=== PATIENT | male | born 1970 | race Caucasian/White ===

== ENCOUNTER 2017-10-31 20:02 | Emergency (ER) | payer BC ==
[2017-10-31 20:10] VITALS: BP 142/87; PULSE 67; RESP 18; TEMP 97.5
[2017-10-31] MEDS ORDERED: SODIUM CHLORIDE 0.9% 1,000 ML IV STA (20:29)
[2017-10-31] MEDS ORDERED: KETOROLAC 30 MG/ML 1 ML VIAL IVP STA (20:29)
[2017-10-31] MEDS ORDERED: ONDANSETRON 4 MG/2 ML VIAL IVP STA (20:35)
[2017-10-31] MEDS ORDERED: MORPHINE SULFATE 4MG/4ML SYRG IVP STA (20:35)
[2017-10-31 20:56] LABS: Basophils % (A) 0 %; Eosinophils # (A) 0.2 k/uL (0-0.7); Eosinophils % (A) 3 %; HCT 42.4 % (39.0-53.0); HGB 14.7 gm/dL (13.0-17.5); Lymphocytes # (A) 2.2 k/uL (1.0-4.8); Lymphocytes % (A) 33 %; MCH 31.9 pg (25.0-35.0); MCHC 34.6 g/dL (31.0-37.0); MCV 92.3 fL (80.0-100.0); Mean Platelet Volume 7.3; Monocytes # (A) 0.4 k/uL (0-1.0); Monocytes % (A) 5 %; Neutrophils # (A) 3.8 k/uL (1.3-7.7); Neutrophils % (A) 56 %; Platelet Count 193 k/uL (150-450); RBC 4.59 m/uL (4.30-5.90); WBC 6.7 k/uL (3.8-10.6)
--- NOTE | 2017-10-31 21:06 | XR ---
EXAMINATION TYPE: XR KUB DATE OF EXAM: 10/31/2017 9:00 PM CLINICAL HISTORY: Acute right-sided flank pain. TECHNIQUE: Two Upright KUB images of the abdomen are obtained. COMPARISON: None. FINDINGS: Scattered gas is seen in non-distended small bowel loops. Gas and fecal material is seen in non-distended colon. Amount of colonic fecal material is slightly prominent particularly in the righ t colon. There is 8mm rounded density over left lower sacrum favoring phlebolith. There is persistent 3 mm right pelvic phlebolith. Lung bases are clear. No pneumoperitoneum is identified. IMPRESSION: Overall nonobstructive bowel gas pattern. Mild to moderate proximal right colonic fecal stasis. No de finite nephrolithiasis.
[2017-10-31 21:07] LABS: ALT 60 U/L (21-72); AST 48 U/L (17-59); Albumin 4.5 g/dL (3.5-5.0); Alkaline Phosphatase 62 U/L (38-126); Amylase 81 U/L (30-110); Anion Gap 14 mmol/L; Blood Urea Nitrogen 21 mg/dL (9-20); Calcium 9.8 mg/dL (8.4-10.2); Carbon Dioxide 29 mmol/L (22-30); Chloride 103 mmol/L (98-107); Glucose 100 mg/dL (74-99); Lipase 221 U/L (23-300); Potassium 3.4 mmol/L (3.5-5.1); Sodium 146 mmol/L (137-145); Total Bilirubin 0.8 mg/dL (0.2-1.3); Total Protein 7.5 g/dL (6.3-8.2)
[2017-10-31 21:17] LABS: Appearance,Urine Cloudy (Clear); Bilirubin,Urine Negative (Negative); Blood,Urine Large (Negative); Color,Urine Red; Glucose,Urine (UA) Negative (Negative); Ketones,Urine Trace (Negative); Leukocyte Esterase,Urine Trace (Negative); Mucus,Urine Many /hpf; Nitrite,Urine Negative (Negative); Protein,Urine 1+ (Negative); RBC,Urine >182 /hpf (0-5); Specific Gravity,Urine 1.023 (1.001-1.035); Urobilinogen,Urine <2.0 mg/dL (<2.0)
[2017-10-31] MEDS ORDERED: TAMSULOSIN 0.4 MG CAP.ER.24H PO STA (21:31)
--- NOTE | 2017-10-31 21:33 | ED ---
Abdominal Pain HPI - General Chief Complaint: Abdominal Pain Stated Complaint: Flank pain Time Seen by Provider: 10/31/17 20:22 Source: patient, RN notes reviewed, old records reviewed Mode of arrival: ambulatory Limitations: no limitations - History of Present Illness Initial Comments: 47 year old male presents with sudden onset of right flank paina and hematuria. No history of kidney stones, his father had them. Patient feels nauseated, no vomiting. Patient was feeling well up to half hour prior to arrival in ED. No fevers, chills, or dysuria. MD Complaint: flank pain - Related Data Previous Rx's Medication Instructions Recorded HYDROcodone/APAP 5-325MG [[place] 1 tab PO Q6HR PRN #20 tab 10/31/17 5-325] Ketorolac [Toradol] 10 mg PO TID #20 tab 10/31/17 Ondansetron Odt [Zofran Odt] 4 mg PO Q8HR PRN #12 tab 10/31/17 Tamsulosin [Flomax] 0.4 mg PO DAILY #10 cap 10/31/17 Allergies Allergy/AdvReac Type Severity Reaction Status Date / Time bee venom protein (honey bee) AdvReac Swelling Verified 10/31/17 20:11 omeprazole [From Prilosec] AdvReac Rash/Hives Verified 10/31/17 20:11 Review of Systems ROS Statement: Those systems with pertinent positive or pertinent negative responses have been documented in the HPI. ROS Other: All systems not noted in ROS Statement are negative. Past Medical History Past Medical History: No Reported History History of Any Multi-Drug Resistant Organisms: None Reported Past Surgical History: Appendectomy, Tonsillectomy Past Psychological History: Anxiety Smoking Status: Never smoker Past Alcohol Use History: Occasional Past Drug Use History: None Reported General Exam - General Exam Comments Initial Comments: 47 year old male, appears in discomfort andpacing around room. Limitations: no limitations General appearance: alert, in no apparent distress Head exam: Present: atraumatic, normocephalic, normal inspection Eye exam: Present: normal appearance, PERRL, EOMI. Absent: scleral icterus, conjunctival injection, periorbital swelling Neck exam: Present: normal inspection. Absent: tenderness, meningismus, lymphadenopathy Respiratory exam: Present: normal lung sounds bilaterally. Absent: respiratory distress, wheezes, rales, rhonchi, stridor Cardiovascular Exam: Present: regular rate, normal rhythm, normal heart sounds. Absent: systolic murmur, diastolic murmur, rubs, gallop, clicks GI/Abdominal exam: Present: soft, tenderness (Right CVA), normal bowel sounds. Absent: distended, guarding, rebound, rigid Extremities exam: Present: normal inspection, full ROM, normal capillary refill. Absent: tenderness, pedal edema, joint swelling, calf tenderness Back exam: Present: normal inspection Neurological exam: Present: alert, oriented X3, CN II-XII intact Course Vital Signs 10/31/17 20:06 Temperature 97.5 F L Pulse Rate 67 Respiratory 18 Rate Blood Pressure 142/87 O2 Sat by Pulse 99 Oximetry Medical Decision Making - Medical Decision Making 47 year old male with hematuria, and right flank pain. Patient was given IV fluids, morphine, adn toradol. He reports improvement of symptoms rapidly. Patient has significant hematuria, no WBC. Patient KUB was reviewed adn shows phleboliths. Patient undwerwent CT, I am able to visualize a 4mm right ureteral stone. Patient will be discharged with flomax, toradol, norco, and zofran. Advised follow up with urology and PCP. REturn parameters discussed. - Lab Data Result diagrams: 10/31/17 20:40 10/31/17 20:40 Lab Results 10/31/17 10/31/17 10/31/17 Range/Units 20:40 20:40 20:40 WBC 6.7 (3.8-10.6) k/uL RBC 4.59 (4.30-5.90) m/uL Hgb 14.7 (13.0-17.5) gm/dL Hct 42.4 (39.0-53.0) % MCV 92.3 (80.0-100.0) fL MCH 31.9 (25.0-35.0) pg MCHC 34.6 (31.0-37.0) g/dL RDW 12.0 (11.5-15.5) % Plt Count 193 (150-450) k/uL Neutrophils % 56 % Lymphocytes % 33 % Monocytes % 5 % Eosinophils % 3 % Basophils % 0 % Neutrophils # 3.8 (1.3-7.7) k/uL Lymphocytes # 2.2 (1.0-4.8) k/uL Monocytes # 0.4 (0-1.0) k/uL Eosinophils # 0.2 (0-0.7) k/uL Basophils # 0.0 (0-0.2) k/uL Sodium 146 H (137-145) mmol/L Potassium 3.4 L (3.5-5.1) mmol/L Chloride 103 (98-107) mmol/L Carbon Dioxide 29 (22-30) mmol/L Anion Gap 14 mmol/L BUN 21 H (9-20) mg/dL Creatinine 1.00 (0.66-1.25) mg/dL Est GFR (CKD-EPI)AfAm >90 (>60 ml/min/1.73 sqM) Est GFR (CKD-EPI)NonAf 89 (>60 ml/min/1.73 sqM) Glucose 100 H (74-99) mg/dL Calcium 9.8 (8.4-10.2) mg/dL Total Bilirubin 0.8 (0.2-1.3) mg/dL AST 48 (17-59) U/L ALT 60 (21-72) U/L Alkaline Phosphatase 62 (38-126) U/L Total Protein 7.5 (6.3-8.2) g/dL Albumin 4.5 (3.5-5.0) g/dL Amylase 81 (30-110) U/L Lipase 221 (23-300) U/L Urine Color Red Urine Appearance Cloudy (Clear) Urine pH 6.0 (5.0-8.0) Ur Specific [place] 1.023 (1.001-1.035) Urine Protein 1+ H (Negative) Urine Glucose (UA) Negative (Negative) Urine Ketones Trace H (Negative) Urine Blood Large H (Negative) Urine Nitrite Negative (Negative) Urine Bilirubin Negative (Negative) Urine Urobilinogen <2.0 (<2.0) mg/dL Ur Leukocyte Esterase Trace H (Negative) Urine RBC >182 H (0-5) /hpf Urine Mucus Many H (None) /hpf - Radiology Data Radiology results: report reviewed overall non obstructive gas pattern. Mild to moderate right proximal stool collection. No nephrolithiasis. No renal stone or hydronephrosis seen bilaterally, no suspicious findings on non contrast study. Read by Dr. Saeed. I reivewed the CT and found a 4mm right ureteral stone. Disposition Clinical Impression: Right ureteral stone Disposition: HOME SELF-CARE Condition: Good Instructions: Ureteral Stones (ED) Additional Instructions: Patient was follow-up with urology and primary care provider. Take the medications as prescribed. Return to the emergency department if any alarming signs or symptoms occur. Prescriptions: HYDROcodone/APAP 5-325MG [[place] 5-325] 1 tab PO Q6HR PRN #20 tab PRN Reason: Pain Ketorolac [Toradol] 10 mg PO TID #20 tab Ondansetron Odt [Zofran Odt] 4 mg PO Q8HR PRN #12 tab PRN Reason: Nausea Tamsulosin [Flomax] 0.4 mg PO DAILY #10 cap Referrals: Micky Collins DO [Primary Care Provider] - 1-2 days Roc Tejada MD [STAFF PHYSICIAN] - 1-2 days Time of Disposition: 22:28
--- NOTE | 2017-10-31 21:58 | CT ---
EXAMINATION TYPE: CT abdomen pelvis wo con DATE OF EXAM: 10/31/2017 HISTORY: right flank pain CT DLP: 869.36 mGycm. Automated Exposure Control for Dose Reduction was Utilized. TECHNIQUE: CT scan of the abdomen and pelvis is performed without oral or IV contrast. COMPARISON: Same day abdominal x-ray. FINDINGS: Within the limitations of a non-contrast study, the following observations are made. LUNG BASES: There is bibasilar dependent atelectasis. LIVER/GB: No significant abnormality is appreciated. PANCREAS: No significant abnormality is seen. SPLEEN: No significant abnormality is seen. ADRENALS: No significant abnormality is seen. KIDNEYS: No renal stones or hydronephrosis is present bilaterally. No intraluminal calculus in the bl adder is seen. BOWEL: Debris-filled stomach is suggestive of recent meal ingestion. No suspicious small or large bow el dilatation is seen. Small bowel feces sign in ileal loops is consistent with delayed passage of in gested material to colonic level. GENITAL ORGANS: Central zone calcification correlates with round density on plain film. There are few tiny additional pelvic phleboliths. LYMPH NODES: No greater than 1cm abdominal or pelvic lymph nodes are appreciated. OSSEOUS STRUCTURES: No significant abnormality is seen. OTHER: No significant additional abnormality is seen. IMPRESSION: No renal stones or hydronephrosis is seen bilaterally. No suspicious acute finding identi fied on noncontrast study.
== END 2017-10-31 22:49 | disposition home or self-care (01) ==
LOC: EC 20:02
DX: N20.1 Calculus of ureter (principal); I87.8 Other specified disorders of veins; Z91.030 Bee allergy status; Z88.8 Allergy status to other drugs, medicaments and biological substances; Z90.49 Acquired absence of other specified parts of digestive tract
CPT/HCPCS: 36415; 80053; 82150; 83690; 85025; 81001; 74018; 74176; 99285; 96374; 96375 ×2; 96361 ×2; J2405; J1885; J2270

== ENCOUNTER 2018-02-22 15:14 | Emergency (ER) | payer BC ==
[2018-02-22 15:49] VITALS: BP 146/79; PULSE 63; RESP 18; TEMP 98.1
[2018-02-22 16:05] LABS: Appearance,Urine Clear (Clear); Bilirubin,Urine Negative (Negative); Blood,Urine Large (Negative); Color,Urine Light Yellow; Glucose,Urine (UA) Negative (Negative); Ketones,Urine Negative (Negative); Leukocyte Esterase,Urine Negative (Negative); Mucus,Urine Rare /hpf; Nitrite,Urine Negative (Negative); PH, Urine 6.5 (5.0-8.0); Protein,Urine Negative (Negative); RBC,Urine 64 /hpf (0-5); Urobilinogen,Urine <2.0 mg/dL (<2.0); WBC,Urine 5 /hpf (0-5)
[2018-02-22] MEDS ORDERED: SODIUM CHLORIDE 0.9% 1,000 ML IV STA (16:39)
[2018-02-22] MEDS ORDERED: MORPHINE SULFATE 4 MG/ML SYRINGE IV STA (16:39)
[2018-02-22] MEDS ORDERED: ONDANSETRON 4 MG/2 ML VIAL IVP STA (16:39)
[2018-02-22] MEDS ORDERED: KETOROLAC 30 MG/ML 1 ML VIAL IVP STA (16:39)
[2018-02-22 17:54] LABS: Basophils % (A) 0 %; Eosinophils # (A) 0.2 k/uL (0-0.7); Eosinophils % (A) 3 %; HCT 42.8 % (39.0-53.0); HGB 14.7 gm/dL (13.0-17.5); Lymphocytes # (A) 1.1 k/uL (1.0-4.8); Lymphocytes % (A) 18 %; MCH 32.1 pg (25.0-35.0); MCHC 34.4 g/dL (31.0-37.0); MCV 93.3 fL (80.0-100.0); Mean Platelet Volume 6.8; Monocytes # (A) 0.3 k/uL (0-1.0); Monocytes % (A) 5 %; Neutrophils # (A) 4.7 k/uL (1.3-7.7); Neutrophils % (A) 74 %; Platelet Count 181 k/uL (150-450); RBC 4.59 m/uL (4.30-5.90); RDW 11.7 % (11.5-15.5); WBC 6.3 k/uL (3.8-10.6)
[2018-02-22 18:05] LABS: ALT 37 U/L (21-72); AST 34 U/L (17-59); Albumin 4.3 g/dL (3.5-5.0); Alkaline Phosphatase 67 U/L (38-126); Anion Gap 7 mmol/L; Blood Urea Nitrogen 19 mg/dL (9-20); Calcium 9.2 mg/dL (8.4-10.2); Carbon Dioxide 30 mmol/L (22-30); Chloride 104 mmol/L (98-107); Glucose 93 mg/dL (74-99); Sodium 141 mmol/L (137-145); Total Bilirubin 0.5 mg/dL (0.2-1.3); Total Protein 6.9 g/dL (6.3-8.2)
--- NOTE | 2018-02-22 18:23 | XR ---
EXAMINATION TYPE: XR KUB, 2 views DATE OF EXAM: 02/22/2018 COMPARISON: 10/31/2017 HISTORY: Right flank pain with difficulty voiding TECHNIQUE: 2 upright views FINDINGS: No calcification over the right renal shadow or expected course of the right ureter, but ri ght carlos-pelvic phleboliths are identified. No calcification over the left renal shadow or expected c ourse of the left ureter, or urinary bladder. The urinary bladder is not enlarged. No pneumoperitoneum or pneumatosis. The bowel gas pattern is normal. No acute soft tissue or skeletal findings. The visualized lung bases and pleural spaces are negative. IMPRESSION: No acute process.
--- NOTE | 2018-02-22 19:33 | ED ---
Abdominal Pain HPI - General Chief Complaint: Abdominal Pain Stated Complaint: poss kidney stone Time Seen by Provider: 02/22/18 16:32 Source: patient Mode of arrival: ambulatory Limitations: no limitations - History of Present Illness Initial Comments: 77 years old male comes in with the right flank pain he has a history of kidney stones pain started about 1:30 PM today he feels like it's a lot of pressure in her muscle spasm in the area pain is quite localized to the right flank area doesn't radiate to the right flank he is status post appendectomy. He does have a history of kidney stone at today is having a difficulty voiding has a history of kidney stones his dad has a history of kidney stones. No fever no chills no nausea no vomiting - Related Data Home Medications Medication Instructions Recorded Confirmed Ibuprofen [Advil] 600 mg PO Q8HR PRN 02/22/18 02/22/18 Testosterone Micronized Powder 1 applic TOPICAL QAM 02/22/18 02/22/18 Allergies Allergy/AdvReac Type Severity Reaction Status Date / Time omeprazole [From Prilosec] Allergy Rash/Hives Verified 02/22/18 16:49 bee venom protein (honey bee) AdvReac Swelling Verified 02/22/18 16:49 Review of Systems ROS Statement: Those systems with pertinent positive or pertinent negative responses have been documented in the HPI. ROS Other: All systems not noted in ROS Statement are negative. Past Medical History Past Medical History: No Reported History History of Any Multi-Drug Resistant Organisms: None Reported Past Surgical History: Appendectomy, Tonsillectomy Past Psychological History: Anxiety Smoking Status: Never smoker Past Alcohol Use History: Occasional Past Drug Use History: None Reported General Exam - General Exam Comments Initial Comments: General: The patient is awake and alert, in distress Skin: Skin is warm and dry and no rashes or lesions are noted. Eye: Pupils are equal, round and reactive to light, extra-ocular movements are intact; there is normal conjunctiva bilaterally. Ears, nose, mouth and throat: There are moist mucous membranes and no oral lesions. Neck: The neck is supple, there is no tenderness or JVD. Cardiovascular: There is a regular rate and rhythm. No murmur, rub or gallop is appreciated. Respiratory: To auscultation bilateral, no wheezing no rhonchi no distress respiratory benavides noticed Gastrointestinal: tender to palpate over the right flank area Back: There is no tenderness to palpation in the midline. There is no obvious deformity. Musculoskeletal: Normal ROM, no tenderness, There is no pedal edema. There is no calf tenderness or swelling. No cords were appreciated. Neurological: CN II-XII intact, Cranial nerves III through XII are intact. There are no obvious motor or sensory deficits. Coordination appears grossly intact. Speech is normal. Psychiatric: Cooperative, appropriate mood & affect, normal judgment. Limitations: no limitations Course Vital Signs 02/22/18 15:46 Temperature 98.1 F Pulse Rate 63 Respiratory 18 Rate Blood Pressure 146/79 O2 Sat by Pulse 99 Oximetry Reassessment noticed some hematuria creatinine is 1.10 CBC and CMP is normal patient be gone home on Flomax 0.4 mg by mouth as by mouth daily for next 10 days and he would use Motrin for pain management on as-needed basis Medical Decision Making - Lab Data Result diagrams: 02/22/18 17:43 02/22/18 17:43 Lab Results 02/22/18 02/22/18 02/22/18 Range/Units 15:55 17:43 17:43 WBC 6.3 (3.8-10.6) k/uL RBC 4.59 (4.30-5.90) m/uL Hgb 14.7 (13.0-17.5) gm/dL Hct 42.8 (39.0-53.0) % MCV 93.3 (80.0-100.0) fL MCH 32.1 (25.0-35.0) pg MCHC 34.4 (31.0-37.0) g/dL RDW 11.7 (11.5-15.5) % Plt Count 181 (150-450) k/uL Neutrophils % 74 % Lymphocytes % 18 % Monocytes % 5 % Eosinophils % 3 % Basophils % 0 % Neutrophils # 4.7 (1.3-7.7) k/uL Lymphocytes # 1.1 (1.0-4.8) k/uL Monocytes # 0.3 (0-1.0) k/uL Eosinophils # 0.2 (0-0.7) k/uL Basophils # 0.0 (0-0.2) k/uL Sodium 141 (137-145) mmol/L Potassium 4.0 (3.5-5.1) mmol/L Chloride 104 (98-107) mmol/L Carbon Dioxide 30 (22-30) mmol/L Anion Gap 7 mmol/L BUN 19 (9-20) mg/dL Creatinine 1.10 (0.66-1.25) mg/dL Est GFR (CKD-EPI)AfAm >90 (>60 ml/min/1.73 sqM) Est GFR (CKD-EPI)NonAf 80 (>60 ml/min/1.73 sqM) Glucose 93 (74-99) mg/dL Calcium 9.2 (8.4-10.2) mg/dL Total Bilirubin 0.5 (0.2-1.3) mg/dL AST 34 (17-59) U/L ALT 37 (21-72) U/L Alkaline Phosphatase 67 (38-126) U/L Total Protein 6.9 (6.3-8.2) g/dL Albumin 4.3 (3.5-5.0) g/dL Urine Color Light Yellow Urine Appearance Clear (Clear) Urine pH 6.5 (5.0-8.0) Ur Specific [place] 1.010 (1.001-1.035) Urine Protein Negative (Negative) Urine Glucose (UA) Negative (Negative) Urine Ketones Negative (Negative) Urine Blood Large H (Negative) Urine Nitrite Negative (Negative) Urine Bilirubin Negative (Negative) Urine Urobilinogen <2.0 (<2.0) mg/dL Ur Leukocyte Esterase Negative (Negative) Urine RBC 64 H (0-5) /hpf Urine WBC 5 (0-5) /hpf Urine Mucus Rare H (None) /hpf Disposition Clinical Impression: Flank pain Disposition: HOME SELF-CARE Condition: Good Instructions: Kidney Stones (ED) Is patient prescribed a controlled substance at d/c from ED?: No Referrals: Micky Collins DO [Primary Care Provider] - 1-2 days
== END 2018-02-22 19:40 | disposition home or self-care (01) ==
LOC: EC 15:14
DX: R10.9 Unspecified abdominal pain (principal); R31.9 Hematuria, unspecified; Z87.442 Personal history of urinary calculi; Z79.899 Other long term (current) drug therapy; Z88.8 Allergy status to other drugs, medicaments and biological substances; Z91.030 Bee allergy status; Z90.49 Acquired absence of other specified parts of digestive tract; Z53.29 Procedure and treatment not carried out because of patient's decision for other reasons
CPT/HCPCS: 36415; 80053; 85025; 81001; 74018; 99284; 96374; 96375; 96361 ×2; J2405; J1885

== ENCOUNTER → 2018-03-12 | Outpatient (CLI) | payer BC ==
--- NOTE | 2018-03-12 10:05 | XR ---
EXAMINATION TYPE: XR abdomen 1V DATE OF EXAM: 03/12/2018 9:50 AM CLINICAL HISTORY: Right ureter stone TECHNIQUE: Two supine KUB images of the abdomen are obtained. COMPARISON: Abdominal x-ray February 22, 2018. CT abdomen and pelvis October 31, 2017. FINDINGS: No definitive right-sided renal or ureter calculi are identified on x-ray in the abdomen co rresponding to the proximal to mid ureter calculus on CT in October. Rounded densities right pelvis are felt to reflect phleboliths the larger 5 mm superior one could reflect interval passage of calculus into distal ureter right before UVJ. No definitive left-sided nephrolithiasis. There is overall nonobstructive bowel gas pattern. Visualized osseous structures are intact. IMPRESSION: Suspect interval passage of 5 mm calculus into distal right ureter.
== END | disposition home or self-care (01) ==
LOC: RADXRMAIN 09:31
PROVIDERS: ATTEND Urology
DX: N20.1 Calculus of ureter (principal)
CPT/HCPCS: 74018

== ENCOUNTER → 2018-03-23 | Outpatient (CLI) | payer BC ==
--- NOTE | 2018-03-23 13:35 | XR ---
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 Following contrast menstruation multiple abdomen films are obtained. Post void image was obtained over the bladder. FINDINGS: Boring Machine Operator Helper film: Calcifications are identified within the pelvis. The larger measures 1.1 x 0.7 cm. Smalle r adjacent calcification measures 0.3 cm. These are new from the comparison of 02/22/2018. No additio nal suspicious calcifications are present. Phleboliths in the right hemipelvis were present previousl y and unchanged. There is prompt uptake and excretion of contrast in the left kidney. There is delayed excretion throu gh the right kidney. 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 Junction is not identified. Left renal pelves infundibulum and ureters appear normal. The distal solitary appearing ureter appears unremarkable. No dilatation is ev ident. There is delayed excretion on the right with prominence of the renal infundibulum and renal pelvis. D elayed excretion into the prominent right ureter. Right ureter is prominent to the distal right pelvi s. IMPRESSION: 1. Delayed excretion from the right kidney. 2. Mild right hydronephrosis and hydroureter to the urinary bladder. 3. New calcifications identified in the expected region of the urinary bladder. Recent Passage of sto lucas could be considered. 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
== END | disposition home or self-care (01) ==
LOC: RADFLMAIN 10:10
PROVIDERS: ATTEND Urology
DX: N21.0 Calculus in bladder (principal); N13.30 Unspecified hydronephrosis; N13.4 Hydroureter; Q64.8 Other specified congenital malformations of urinary system; Z88.8 Allergy status to other drugs, medicaments and biological substances
CPT/HCPCS: 74400; Q9967

== ENCOUNTER → 2023-05-21 | Outpatient (CLI) | payer BC ==
--- NOTE | 2023-05-21 15:21 | XR ---
EXAMINATION TYPE: XR KUB DATE OF EXAM: 05/21/2023 COMPARISON: KUB 05/21/2021 HISTORY: Nephrolithiasis TECHNIQUE: Single supine KUB image of the abdomen is obtained FINDINGS: Small bowel demonstrates no evidence for dilatation or air fluid levels. Gas and fecal material is seen in non-distended colon. No convincing evidence for pneumoperitoneum. No definitive renal or ureteral calcifications. Stable right pelvic phlebolith. The lung bases are clear. The osseous structures are intact. IMPRESSION: 1. Overall nonobstructive bowel gas pattern. 2. No definitive renal or ureteral calcifications. Stable right pelvic phlebolith.
== END | disposition home or self-care (01) ==
LOC: RADXRMAIN 14:55
PROVIDERS: ATTEND Family Medicine
DX: N20.0 Calculus of kidney (principal); I87.8 Other specified disorders of veins
CPT/HCPCS: 74018

== ENCOUNTER → 2023-10-15 | Outpatient (CLI) | payer BC ==
--- NOTE | 2023-10-15 09:46 | CA ---
Transthoracic Echo Report Name: Manuel Zavala Age: 53 Gender: M : 1970 Exam Date: 10/15/2023 08:27 Exam Location: [facility] Ht (in): 76 Wt (lb): 215 Ordering Physician: Reagan Sky DO Attending/Referring Phys: Financial Accounting Analyst Carolyne Ag RDCS Procedure CPT: Indications: I61.0 NONTRAUMATIC INTCRBL HEMORRHAGE Cardiac Hx: Technical Quality: Good Contrast 1: Total Dose (mL): Contrast 2: Total Dose (mL): MEASUREMENTS (Male / Female) Normal Values 2D ECHO LV Diastolic Diameter PLAX 5.2 cm 4.2 - 5.9 / 3.9 - 5.3 cm LV Systolic Diameter PLAX 3.5 cm IVS Diastolic Thickness 1.1 cm 0.6 - 1.0 / 0.6 - 0.9 cm LVPW Diastolic Thickness 1.0 cm 0.6 - 1.0 / 0.6 - 0.9 cm LV Relative Wall Thickness 0.4 RV Internal Dim ED PLAX 3.3 cm LA Systolic Diameter LX 3.5 cm 3.0 - 4.0 / 2.7 - 3.8 cm LV Diastolic Volume MOD 4C 122.8 cm??? LV Systolic Volume MOD 4C 53.9 cm??? LV Ejection Fraction MOD 4C 56.1 % LV Cardiac Index MOD 4C 1800.7 cm???/min???m??? LV Diastolic Length 4C 8.8 cm LV Systolic Length 4C 6.9 cm LV Diastolic Volume MOD 2C 110.5 cm??? LV Systolic Volume MOD 2C 42.8 cm??? LV Ejection Fraction MOD 2C 61.3 % LV Cardiac Index MOD 2C 1770.2 cm???/min???m??? LV Diastolic Length 2C 9.6 cm LV Systolic Length 2C 8.2 cm LA Volume 53.0 cm??? 18 - 58 / 22 - 52 cm??? LA Volume Index 23.1 cm???/m??? 16 - 28 cm???/m??? M-MODE Aortic Root Diameter MM 3.9 cm MV E Point Septal Separation 0.3 cm DOPPLER AV Peak Velocity 138.9 cm/s AV Peak Gradient 7.7 mmHg TR Peak Velocity 203.1 cm/s TR Peak Gradient 16.5 mmHg Right Ventricular Systolic Press 21.5 mmHg FINDINGS Left Ventricle Left ventricular ejection fraction is estimated at 60-65 %. Left ventricular cavity size normal. Left ventricular wall thickness normal. No obvious regional wall motion abnormality Right Ventricle Normal right ventricular size. Right ventricular systolic pressure within normal limits. Right Atrium Normal right atrial size. Left Atrium Normal left atrial size. Mitral Valve Structurally normal mitral valve. No mitral stenosis, regurgitation or prolapse. Aortic Valve Trileaflet aortic valve. No aortic valve stenosis or regurgitation. Tricuspid Valve Structurally normal tricuspid valve. Trace tricuspid regurgitation. Pulmonic Valve Structurally normal pulmonic valve. No pulmonic regurgitation. Pericardium No pericardial effusion. Aorta Mild aortic dilatation at the level of the sinuses of valsalva 39 mm CONCLUSIONS Left ventricular ejection fraction is estimated at 60-65 %. No obvious regional wall motion abnormality. Normal LV size and function No significant valvular dysfunction No pericardial effusion. . Previewed by: Dr Alejo Bernal (Electronically Signed) Final Date: 15 October 2023 09:45
--- NOTE | 2023-10-15 11:31 | CA ---
Exercise Stress Test Report Name: Manuel Zavala Exam Date: 10/15/2023 09:01 Exam Location: [facility] Stress Ht (in): 75 Wt (lb): 215 BSA: 2.26 Ordering Phys: Reagan Petty DO Referring Phys: REAGAN PETTY Technologist: LUCIA DUNAWAY Age: 53 Gender: M : 1970 Procedure CPT: Indications: I61.0 NONTRAUMATIC INTCRBL HEMORRHAGE ICD-10 Codes: Patient History: CHEST PAIN, HTN, Medications: Meds past 24 hrs: Pretest Chest Pain: STRESS TEST Modified Haroldo Protocol Exercise Duration (min:sec): 10:[address] Depressions (mm): Angina Score: Chong Score: Resting HR (bpm): 79 Peak HR (bpm): 168 Resting BP (mmHg): 152 / 102 Peak BP (mmHg): 188 / 80 MPHR: 167 Target HR: 142 % MPHR: 101 METS: 12.1 Total Dose: Peak Dose: Atropine: Double Product: 80464 BP Response: Stress Termination: MAX EXERTION/TARGET HR Stress Symptoms: NO SYMPTOMS Stress Summary: ECG ANALYSIS Resting ECG: Normal sinus rhythm, normal axis, heart rate 74 bpm Stress ECG: There were no significant ST-T wave changes that are diagnostic for ischemia by ST segment analysis. There were no sustained arrhythmias or ectopic beats noticed during the stress test CONCLUSIONS Normal hemodynamic and clinical response to treadmill exercise Nonischemic ECG response to treadmill exercise Excellent exercise tolerance for age achieving 12.1 METS Patient slightly hypertensive at baseline, SBP 152 mmHg on admission Overall normal treadmill stress test Dr Alejo Bernal (Electronically Signed) Final Date: 15 October 2023 11:30
== END | disposition home or self-care (01) ==
LOC: RADECHMAIN 08:05
PROVIDERS: ATTEND Family Medicine
DX: I10 Essential (primary) hypertension (principal); I61.0 Nontraumatic intracerebral hemorrhage in hemisphere, subcortical; I16.0 Hypertensive urgency; R07.9 Chest pain, unspecified
CPT/HCPCS: 93017; 93306